=== PATIENT | male | born 1965 | race Caucasian/White ===

== ENCOUNTER 2023-09-11 11:02 | Day surgery (SDC) | payer MEDICAID ==
[~2023-09-11] VITALS: Ht 180.3 cm; Wt 90.7 kg
[2023-09-11] MEDS ORDERED: LIDOCAINE 2% 100 MG/5 ML UJET TP ONE ×2 (13:00→14:30)
[2023-09-11] MEDS ORDERED: fentaNYL citrate 0.05 MG/ML VIAL ONE (13:00)
[2023-09-11] MEDS: fentaNYL citrate 0.05 MG/ML VIAL IVP ONE (13:25)
[2023-09-11] MEDS: MIDAZOLAM 2 MG/2 ML VIAL IVP ONE (13:32)
[2023-09-11] MEDS ORDERED: MIDAZOLAM 2 MG/2 ML VIAL ONE (13:44)
== END 2023-09-11 15:30 | disposition home or self-care (01) ==
LOC: MDS 11:02 → MMU 11:34 → MDS 15:30
PROVIDERS: ATTEND Internal Medicine Gastroenterology
DX: K57.30 Diverticulosis of large intestine without perforation or abscess without bleeding (principal); R14.0 Abdominal distension (gaseous); K63.5 Polyp of colon; K64.8 Other hemorrhoids; Z98.890 Other specified postprocedural states
CPT/HCPCS: J2250; J3010